=== PATIENT | male | born 1950 | race African-American/Black ===

== ENCOUNTER 2016-03-12 12:16 | Outpatient (CLI) | payer MEDICARE, MEDICAID ==
[2016-03-12 13:06] LABS: Hemoglobin A1c 7.7 % (4.0-6.0)
[2016-03-12 13:12] LABS: ALT (SGPT) 24 U/L (0-55); AST (SGOT) 23 U/L (5-34); Alkaline Phosphatase 98 U/L (40-150); Anion Gap 15 mmol/L (10-20); BUN (Urea Nitrogen) 16 mg/dL (8.4-25.7); Bilirubin, Total 0.6 mg/dL (0.2-1.2); Calc. Creatinine Clearance 0 mL/min (70-130); Calcium 9.5 mg/dL (7.8-10.44); Carbon Dioxide 22 mmol/L (23-31); Chloride 105 mmol/L (98-107); Estimated GFR-MDRD 51; Globulin 3.4 g/dL (2.4-3.5); Glucose 132 mg/dL (80-115); Potassium 3.3 mmol/L (3.5-5.1); Protein, Total 7.4 g/dL (5.8-8.1); Sodium 139 mmol/L (136-145)
== END 2016-03-12 12:17 | disposition home or self-care (01) ==
LOC: MADLABBHPM 12:16
PROVIDERS: ATTEND Family Medicine
DX: E11.22 Type 2 diabetes mellitus with diabetic chronic kidney disease (principal); I10 Essential (primary) hypertension
CPT/HCPCS: 36415; 80053; 83036

== ENCOUNTER 2016-04-07 17:03 | Emergency (ER) | payer MEDICARE, MEDICAID ==
[2016-04-07] MEDS ORDERED: Sodium Chloride 0.9% 100 ML BAG ONE (17:15)
[2016-04-07] MEDS ORDERED: cefTRIAXone\\ROCEPHIN 1 GM VIAL ONE (17:32)
[2016-04-07] MEDS ORDERED: Lidocaine 1% 20 ML MDV ONE (17:32)
--- NOTE | 2016-04-07 18:36 | PICIS ---
[facility] EMERGENCY RECORD TRIAGE (ThuApr 07, 2016 17:10 MDEB) TRIAGE NOTES: PAINFUL LEFT EYE AND PAIN TO LEFT UPPER JAW. (ThuApr 07, 2016 17:10 MDEB) PATIENT: NAME: Davy Chen, AGE: 65, GENDER: male, : Thu1950, TIME OF GREET: ThuApr 07, 2016 17:04, PREFERRED LANGUAGE: Amharic, ETHNICITY: Not or , FALL RISK: NO, ECODE BILLING MAP: [facility], SSN: [id number], Zip Code: [address], KG WEIGHT: 78.93, PHONE: , , , PERSON ID: [id number], PCP: MD NOBLES IMELDA. (ThuApr 07, 2016 17:10 MDEB) COMPLAINT: LT EYE-BUMP & REDNESS. (ThuApr 07, 2016 17:10 MDEB) ADMISSION: URGENCY: 4 Non Urgent, ADMISSION SOURCE: Home, TRANSPORT: Walk-in, BED: ED -03. (ThuApr 07, 2016 17:10 MDEB) ASSESSMENT: Symptoms began 04/05/2016. (17:12 MDEB) PAIN: Patient complains of pain described as, throbbing, on a scale 0-10 patient rates pain as 5, Location LEFT LOWER LID, Pain is constant, Aggravating factors:, Aggravating factors include BLINKING, Relieving factors present, Relieving factors include WARM COMPRESSES. (17:12 MDEB) SIRS SCORING: Heart Rate 55-109 (0), Temp range 96.8-101.1 (0), respiratory rate 12-24 (0), Mental Status altered: no (0). (17:12 MDEB) TRIAGE SCREENING: Patient denies suicidal ideation, Patient denies presence of domestic violence. (17:12 MDEB) PROVIDERS: TRIAGE NURSE: Zohreh Flaherty RN. (ThuApr 07, 2016 17:10 MDEB) VITAL SIGNS: BP 148/87, Pulse 73, Resp 18, Temp 98.8, (Tympanic), Pain 5, (not applicable), O2 Sat 97, on Room Air, Time 04/07/2016 17:08. (17:08 MDEB) PREVIOUS VISIT ALLERGIES: No Known Drug Allergies. (ThuApr 07, 2016 17:10 MDEB) No Known Drug Allergies. (17:12 MDEB) KNOWN ALLERGIES No Known Allergies (Unconfirmed) No Known Drug Allergies CURRENT MEDICATIONS (17:11 MDEB) enalapril maleate: TABLET : Strength - 10 mg : ORAL Patient Dose: 2 times a day. glyBURIDE: TABLET : Strength - 5 mg : ORAL Patient Dose: 2 times a day. Stribild: TABLET : Strength - 150 mg-150 mg-200 mg-300 mg : ORAL Patient Dose: 1 tab(s) Oral once a day (in the morning). Combivent: AEROSOL WITH ADAPTER (GRAM) : Strength - 18 mcg-103 mcg (90 &a-1R&a+25V*p+0X*v6438T*c202B*c15G*c2P*p-0X&a-25V&a+1R Name: Davy Chen : 1950 M65 MedRec: [id number] AcctNum: [id number] Prepared: ThuApr 08, 2016 01:14 by Interface Page 1 of 6 pMD [facility] EMERGENCY RECORD mcg)/actuation : INHALATION Patient Dose: 4 times a day. hydrochlorothiazide: CAPSULE : Strength - 12.5 mg : ORAL Patient Dose: once a day. VITAL SIGNS (17:08 MDEB) VITAL SIGNS: BP: 148/87, Pulse: 73, Resp: 18, Temp: 98.8 (Tympanic), Pain: 5 (not applicable), O2 sat: 97 on Room Air, Time: 04/07/2016 17:08. NURSING ASSESSMENT: EYE (17:37 SFRE) CONSTITUTIONAL: Patient arrives ambulatory, Gait steady, History obtained from patient, Patient appears comfortable, Patient cooperative, Patient alert, Oriented to person, place and time, Skin warm, Skin dry, Skin normal in color, Mucous membranes pink, Mucous membranes moist, Patient is well-groomed, Patient complains of PAIN TO LEFT EYE. PAIN: throbbing pain, Left eye, Onset of pain 04/05/2016, constant, TEMPORARY RELIEF WITH WARM COMPRESSES, Pain exacerbated by, BLINKING, Nothing has been tried to alleviate the pain. EYES: Eye lid, with edema on the left, Conjunctiva, injected on the left, Sclera, injected on the left, Iris normal, Pupils equally round and reactive to light, Associated with drainage, yellow in color, to the left eye, AND CLEAR DRAINAGE, Notes: SMALL BUMP ON LOWER LEFT LID. SAFETY: Side rails up, Cart/Stretcher in lowest position, Call light within reach, Hospital ID band on. NURSING PROCEDURE: DISCHARGE NOTE (18:09 SFRE) DISCHARGE: Patient discharged to home, ambulating without assistance, friend driving, accompanied by friend, Summary of Care printed/ provided, Patient requested and was provided an electronic copy of Discharge Instructions, Discharge instructions given to patient, Simple or moderate discharge teaching performed, by KALE ANAYA, F/U WITH PCP. RX DIRECTED. RETURN TO ED NEEDED FOR NEW/CONCERNING OR WORSENING SYMPTOMS., Prescriptions given and instructions on side effects given, Name of prescription(s) given: AUGMENTIN, GENT OINT, Above person(s) verbalized understanding of discharge instructions and follow-up care. MEDICATION ADMINISTRATION SUMMARY Drug Name: Rocephin injection, Dose Ordered: 1 g, Route: Intramuscular, Status: Given, Time: 17:31 04/07/2016, Detailed record available in Medication Service section. &a-1R&a+25V*p+0X*p1851B*c202B*c15G*c2P*p-0X&a-25V&a+1R Name: Davy Chen : 1950 M65 MedRec: [id number] AcctNum: [id number] Prepared: ThuApr 08, 2016 01:14 by Interface Page 2 of 6 pMD [facility] EMERGENCY RECORD MEDICATION SERVICE (17:31 [facility]) Rocephin injection: Order: Rocephin injection (ceftriaxone sodium) - Dose: 1 g : Intramuscular Schedule: Now Ordered by: Sudarshan Bahena MD Entered by: Sudarshan Bahena MD ThuApr 07, 2016 17:31 , Acknowledged by: Erica Chacon RN ThuApr 07, 2016 17:31 Documented as given by: Erica Chacon RN ThuApr 07, 2016 17:31 Patient, Medication, Dose, Route and Time verified prior to administration. IM antibiotic, Amount given: 1G, Medication administered to right hip, Patient appears Awake and alert- acceptable, Correct patient, time, route, dose and medication confirmed prior to administration, Patient advised of actions and side-effects prior to administration, Allergies confirmed and medications reviewed prior to administration, Patient in position of comfort, Side rails up, Cart in lowest position, Family at bedside. HPI EYE COMPLAINT (17:32 DHAM) CHIEF COMPLAINT: Patient presents for evaluation of pain, to the left eye, Patient presents for evaluation of swelling L lower eyelid. HISTORIAN: History provided by patient, Pt is an HIV pos and diabetic male with onset of a knot on his left lower eyelid 48 hours ago. He now has pain in front of his left ear. no fever. MECHANISM OF INJURY: no injury. LOCATION: Symptoms are localized, most severe in the left eye. QUALITY: Pain is dull in nature, described as aching. SEVERITY: Current severity of pain rated as 5/10. TIME COURSE: Gradual onset of symptoms, 45, hours prior to arrival, Symptoms are worsening, more swelling and pain. ASSOCIATED WITH: No associated contact use, Associated with crusting, Associated with discharge, No associated facial pain, No associated fever, No associated foreign body sensation, No associated glasses use, No associated headache, No associated nausea, No associated tearing, No associated upper respiratory infection, No associated vomiting, No associated weakness, No associated blurred vision, pain and a "bump in front of my left ear.". RELIEVED BY: Nothing tried for relief. ROS (17:37 DHAM) EYES: Historian reports eye pain, denies eye redness, reports eye discharge, denies itching, denies photophobia, denies tearing, denies vision changes. ENT: Historian denies otalgia, denies rhinorrhea, denies voice changes. &a-1R&a+25V*p+0X*o2449N*c202B*c15G*c2P*p-0X&a-25V&a+1R Name: Davy Chen : 1950 M65 MedRec: [id number] AcctNum: [id number] Prepared: ThuApr 08, 2016 01:14 by Interface Page 3 of 6 pMD [facility] EMERGENCY RECORD CARDIOVASCULAR: Historian denies chest pain. RESPIRATORY: Historian denies cough, denies shortness of breath, denies sputum. ENDOCRINE: blood sugars "always about 130". PAST MEDICAL HISTORY MEDICAL HISTORY: Notes: verified 11-12-15, Notes: HIV+ CURRENTLY UNDER TREATMENT, HTN, ischemic CVA X2, COPD, DM, 09-20-15. (17:12 MDEB) MALE SURGICAL HISTORY: verified 11-12-15, RIGHT ROTATOR CUFF REPAIR, UMBILICAL HERNIA REPAIR IN 2015, XIAO:09-20-15. (17:12 MDEB) SOCIAL HISTORY: Patient denies alcohol use, Patient denies drug use, Patient has no smoking history, Patient denies alcohol use, Patient denies drug use, Patient has no smoking history, Lives at home, with family, Patient denies alcohol use, Patient denies drug use, Patient has no smoking history. (17:12 MDEB) NOTES: HAVE EXAMINED AND AGREE WITH PMHX, SOCIAL HX AND PAST FAMILY HX as noted in nursing docuentation. (17:41 DHAM) PHYSICAL EXAM (17:38 DHAM) CONSTITUTIONAL: Vital Signs Reviewed, Patient afebrile, Pulse normal, Blood pressure normal, Respiratory rate normal, Patient appears non toxic, Patient appears pain free, Patient alert and oriented to person, place and time, Nursing notes reviewed. HEAD: Head exam included findings of head atraumatic, normocephalic, no raccoon eyes, Normal temporal artery exam. EYES: Pupils equally round and reactive to light, Extraocular muscles intact, Conjunctiva normal, Sclera normal, Atraumatic, Eye exam included findings of anterior chamber clear, left lower eyelid with 5mm x 5mm nodule at the lid margin with mild swelling of the left lower lid. 1.5 x 1.5 cm preauricular node on the left that is mobile, slightly tender, firm and not fluctuant. ENT: Ear exam normal, Nose exam normal, Pharynx exam normal, Uvula exam normal, Mouth exam normal. NECK: Neck exam included findings of normal range of motion, no meningeal signs, no cervical adenopathy. RESPIRATORY CHEST: Respiratory exam included findings of no respiratory distress, Breath sounds clear, No wheezing, No rales, No rhonchi. CARDIOVASCULAR: Cardiovascular assessment normal. NEURO: Charlene coma scale 15, Neuro exam findings include patient oriented to person, place and time, Speech normal, Gait normal, Memory normal. SKIN: Skin exam included findings of skin warm, dry, and normal in color, no rash. PSYCHIATRIC: Psychiatric exam included findings of patient oriented to person place and time, Normal affect, Judgment normal, Insight normal, Remote memory normal, Recent memory normal, Concentration normal. &a-1R&a+25V*p+0X*v0680A*c202B*c15G*c2P*p-0X&a-25V&a+1R Name: Davy Chen : 1950 M65 MedRec: [id number] AcctNum: [id number] Prepared: ThuApr 08, 2016 01:14 by Interface Page 4 of 6 pMD [facility] EMERGENCY RECORD EVENTS TRANSFER: Triage to Emergency Main ED -03. (ThuApr 07, 2016 17:10 MDESEQUIEL) Emergency Main ED -03 to Holding. (18:13 SFRE) Removed from Emergency Holding. (18:18 SFRE) O2SAT INTERPRETATION (17:41 DHAM) O2SAT: Single pulse oximetry, Oxygen saturation 97%, on room air, Oxygen saturation interpretation: Normal, No intervention required. PROBLEM LIST No recorded problems DIAGNOSIS (17:42 DHAM) FINAL: PRIMARY: stye left eye, ADDITIONAL: ACUTE LYMPHADENITIS UNSPECIFIED. DISPOSITION PATIENT: Disposition Type: Discharge, Disposition: *Discharge Home. (17:42 DHAM) Patient left the department. (18:18 SFRE) INSTRUCTION (17:43 DHAM) DISCHARGE: STY. FOLLOWUP: MD [place], [facility], [facility], [address] [place] [id number], [id number]. SPECIAL: Augmentin 875mg one twice a day for 10 days Gentamycin ophth oint 4 times a day to the left eye after a 10 minute warm soak 4 times a day. Return for increased swelling, pain, fevers. PRESCRIPTION Augmentin: TABLET : 875 mg-125 mg : ORAL : Quantity: 1 Unit: tab(s) Route: ORAL Schedule: 2 times a day (before meals) Dispense: 20 Unit: tab(s) May substitute. Refills: No Refills . (17:47 DHAM) NOTES: No Refills. (17:47 DHAM) Gentak: OINTMENT (GRAM) : 0.3 % : OPHTHALMIC : Quantity: 1 Unit: marco Route: OPHTHALMIC Schedule: 4 times a day Dispense: 1 Unit: ea May substitute. Refills: No Refills . (17:48 DHAM) NOTES: No Refills. (17:48 DHAM) IMAGING (18:18 SFRE) *DISCHARGE INSTRUCTIONS RECEIPT: Image captured from scanner. *SUPPLY CHARGE SHEET: Image captured from scanner. ADMIN (ThuApr 08, 2016 01:09 DHAM) DIGITAL SIGNATURE: MD Bahena Darren. &a-1R&a+25V*p+0X*b7221H*c202B*c15G*c2P*p-0X&a-25V&a+1R Name: Davy Chen : 1950 M65 MedRec: [id number] AcctNum: [id number] Prepared: ThuApr 08, 2016 01:14 by Interface Page 5 of 6 pMD [facility] EMERGENCY RECORD Ferguson: ALEXIS=MD Josef, Sudarshan MDEB=KALE Flaherty, Zohreh NGUYENE=KALE Chacon, Erica &a-1R&a+25V*p+0X*v6376B*c202B*c15G*c2P*p-0X&a-25V&a+1R Name: Davy Chen : 1950 M65 MedRec: [id number] AcctNum: [id number] Prepared: ThuApr 08, 2016 01:14 by Interface Page 6 of 6 pMD MTDD
== END 2016-04-07 18:09 | disposition home or self-care (01) ==
LOC: MADERS 17:03
DX: H00.015 Hordeolum externum left lower eyelid (principal); L04.9 Acute lymphadenitis, unspecified; I10 Essential (primary) hypertension; B20 Human immunodeficiency virus [HIV] disease; Z79.899 Other long term (current) drug therapy
CPT/HCPCS: 96372; J0696; J2001; J7050

== ENCOUNTER 2016-05-18 14:39 | Emergency (ER) | payer MEDICARE, MEDICAID ==
[2016-05-18] MEDS ORDERED: Acetaminophen/Codeine 30-300mg Tablet ONE (15:41)
[2016-05-18] MEDS ORDERED: AMOXicillin 250 MG CAP ONE (15:41)
[2016-05-18] MEDS ORDERED: Sulfameth/Trimethoprim DS 800-160mg TAB ONE (15:41)
== END 2016-05-18 15:45 | disposition home or self-care (01) ==
LOC: MADERS 14:39
DX: N48.21 Abscess of corpus cavernosum and penis (principal); I10 Essential (primary) hypertension; J44.9 Chronic obstructive pulmonary disease, unspecified; E11.9 Type 2 diabetes mellitus without complications; Z21 Asymptomatic human immunodeficiency virus [HIV] infection status; Z86.73 Personal history of transient ischemic attack (TIA), and cerebral infarction without residual deficits; Z79.84 Long term (current) use of oral hypoglycemic drugs; Z79.899 Other long term (current) drug therapy
CPT/HCPCS: 99282

== ENCOUNTER 2016-06-02 12:29 | Outpatient (CLI) | payer MEDICARE, MEDICAID ==
[2016-06-02 13:14] LABS: Hemoglobin A1c 7.9 % (4.0-6.0)
[2016-06-02 13:16] LABS: ALT (SGPT) 27 U/L (0-55); AST (SGOT) 24 U/L (5-34); Albumin 3.7 g/dL (3.4-4.8); Alkaline Phosphatase 79 U/L (40-150); Anion Gap 12 mmol/L (10-20); BUN (Urea Nitrogen) 14 mg/dL (8.4-25.7); Bilirubin, Total 0.5 mg/dL (0.2-1.2); Calc. Creatinine Clearance 0 mL/min (70-130); Calcium 9.1 mg/dL (7.8-10.44); Carbon Dioxide 24 mmol/L (23-31); Cardiac Risk 5.5 (Less than 4.5); Chloride 105 mmol/L (98-107); Cholesterol 176 mg/dL (< 200 Desired); Estimated GFR-MDRD 60; Globulin 3.3 g/dL (2.4-3.5); Glucose 187 mg/dL (80-115); HDL Cholesterol 32 mg/dL (>60 Neg Risk); LDL Cholesterol, Calculated 106 mg/dL; Potassium 3.2 mmol/L (3.5-5.1); Sodium 138 mmol/L (136-145); Triglycerides 192 mg/dL (Less than 150)
[2016-06-02 13:49] LABS: PSA-Asymptomatic (SCREENING) 1.17 ng/mL (0-4.0); Thyroid Stimulating Hormone 2.897 uIU/mL (0.35-4.94)
[2016-06-02 14:56] LABS: Bilirubin Negative (Negative); Blood, Urine Moderate (Negative); Clarity Clear (Clear); Glucose, Urine (Dipstick) 250 mg/dL (Negative); Leukocyte Negative (Negative); Nitrite Negative (Negative); Protein, Urine (Dipstick) > or equal to 300 mg/dL (Neg-Trace); Specific Gravity, Urine 1.025 (1.005-1.030); Urobilinogen 0.2 mg/dL (0.2-1.0); pH, Urine 5.5 (5.0-9.0)
[2016-06-02 15:13] LABS: Bacteria/HPF Rare-Few HPF (None Seen); Squamous Epithelial 0-3 HPF (0-3); WBC/HPF 0-3 HPF (0-3)
[2016-06-03 17:28] LABS: Creatinine, Urine 166.59 mg/dL (63-166)
== END 2016-06-02 12:30 | disposition home or self-care (01) ==
LOC: MADLABBHPM 12:29
PROVIDERS: ATTEND Urology
DX: E78.5 Hyperlipidemia, unspecified (principal); E11.22 Type 2 diabetes mellitus with diabetic chronic kidney disease
CPT/HCPCS: 36415; 80053; 80061; 81001; 82570; 83036; 84156; 84443; 87086; G0103

== ENCOUNTER 2016-06-10 11:17 | Outpatient (CLI) | payer MEDICARE, MEDICAID ==
[2016-06-10 11:52] LABS: #Basophils 0.1 thou/uL (0.0-0.2); #Eosinphils 0.4 thou/uL (0.0-0.7); #Lymphocytes 1.8 thou/uL (1.20-3.40); #Monocytes 0.4 thou/uL (0.11-0.59); #Neutrophils 2.5 thou/uL (1.40-6.50); %Basophils 1.7 % (0.0-1.0); %Eosinophils 7.3 % (0.0-10.0); %Lymphocytes 34.2 % (21.0-51.0); %Monocytes 7.1 % (0.0-10.0); %Neutrophils 49.8 % (42.0-75.0); Hemoglobin 12.9 g/dL (14.0-18.0); Mean Corpuscular HGB CONC 32.8 g/dL (32.0-36.0); Mean Corpuscular Hemoglobin 26.4 pg (27.0-31.0); Mean Corpuscular Volume 80.7 fl (80.0-94.0); Mean Platelet Volume 9.6 fL (7.4-10.4); Platelet Count 161 thou/uL (130-400); RBC Distribution Width 14.6 % (11.5-14.5); Red Blood Cell (RBC) Count 4.89 mill/uL (4.70-6.10); White Blood Cell (WBC) Count 5.1 thou/uL (4.8-10.8)
[2016-06-10 12:24] LABS: ALT (SGPT) 30 U/L (0-55); AST (SGOT) 27 U/L (5-34); Albumin 3.7 g/dL (3.4-4.8); Alkaline Phosphatase 88 U/L (40-150); Anion Gap 14 mmol/L (10-20); BUN (Urea Nitrogen) 13 mg/dL (8.4-25.7); Bilirubin, Total 0.6 mg/dL (0.2-1.2); Calc. Creatinine Clearance 0 mL/min (70-130); Calcium 8.9 mg/dL (7.8-10.44); Carbon Dioxide 23 mmol/L (23-31); Chloride 108 mmol/L (98-107); Estimated GFR-MDRD 63; Globulin 3.4 g/dL (2.4-3.5); Glucose 160 mg/dL (80-115); Potassium 3.7 mmol/L (3.5-5.1); Protein, Total 7.1 g/dL (5.8-8.1); Sodium 141 mmol/L (136-145)
[2016-06-10 17:48] LABS: HBSAB Concentration 3.15 mIU/mL; HBSAg Index 0.25 S/CO (0-0.99); Hep B Surf AB Non-Reactive (NonReactive); Hep B Surf Ag Non-Reactive S/CO (NonReactive)
[2016-06-12 08:30] LABS: Hepatitis A Total ABS Positive (Negative)
[2016-06-12 12:16] LABS: Absolute CD4 252 /uL (359-1519); Lymphocytes/Gated Cell Count 1.8 x10E3/uL (0.7-3.1); Total Lymphocyte 35 % (.); WBC Total Count 5.1 x10E3/uL (3.4-10.8)
== END 2016-06-10 11:18 | disposition home or self-care (01) ==
LOC: MADLAB 11:17
PROVIDERS: ATTEND Internal Medicine Infectious Disease
DX: Z21 Asymptomatic human immunodeficiency virus [HIV] infection status (principal)
CPT/HCPCS: 36415; 80053; 85025; 85048; 86361; 86480; 86592; 86706; 86708; 87340; 87536

== ENCOUNTER 2016-06-12 07:34 | Outpatient (CLI) | payer MEDICARE, MEDICAID ==
--- NOTE | 2016-06-12 09:52 | ULT ---
BILATERAL RENAL ULTRASOUND: HISTORY: Chronic renal disease. FINDINGS: The right kidney measures 11.4 cm in length and the left kidney measures 11 cm in length. No hydron ephrosis is seen on either side. There is an 12 cyst in the left mid kidney. The urinary bladder i s unremarkable. IMPRESSION: Left renal cyst. POS: [facility]
== END 2016-06-12 07:35 | disposition home or self-care (01) ==
LOC: MADULT 07:34
PROVIDERS: ATTEND Internal Medicine Nephrology
DX: N18.3 Chronic kidney disease, stage 3 (moderate) (principal); N28.1 Cyst of kidney, acquired
CPT/HCPCS: 76770

== ENCOUNTER 2016-07-26 13:05 | Emergency (ER) | payer MEDICARE, MEDICAID ==
[2016-07-26] MEDS ORDERED: Benzonatate 100 MG CAP ONE (14:53)
[2016-07-26] MEDS ORDERED: AMOXicillin 250 MG CAP ONE (14:53)
[2016-07-26] MEDS ORDERED: Naproxen 500 MG TAB ONE (14:53)
== END 2016-07-26 15:00 | disposition home or self-care (01) ==
LOC: MADERS 13:05
DX: J20.9 Acute bronchitis, unspecified (principal); I10 Essential (primary) hypertension; B20 Human immunodeficiency virus [HIV] disease; J44.9 Chronic obstructive pulmonary disease, unspecified; E11.9 Type 2 diabetes mellitus without complications; Z79.899 Other long term (current) drug therapy; Z86.73 Personal history of transient ischemic attack (TIA), and cerebral infarction without residual deficits; Z79.84 Long term (current) use of oral hypoglycemic drugs
CPT/HCPCS: 99283

== ENCOUNTER 2016-07-31 08:02 | Outpatient (CLI) | payer MEDICARE, MEDICAID ==
[2016-07-31 08:34] LABS: Hemoglobin A1c 6.8 % (4.0-6.0)
[2016-07-31 09:05] LABS: ALT (SGPT) 39 U/L (8-55); AST (SGOT) 23 U/L (5-34); Albumin 3.6 g/dL (3.4-4.8); Alkaline Phosphatase 88 U/L (40-150); Anion Gap 12 mmol/L (10-20); BUN (Urea Nitrogen) 11 mg/dL (8.4-25.7); Bilirubin, Total 0.4 mg/dL (0.2-1.2); Calc. Creatinine Clearance 0 mL/min (70-130); Calcium 8.8 mg/dL (7.8-10.44); Carbon Dioxide 23 mmol/L (23-31); Chloride 108 mmol/L (98-107); Estimated GFR-MDRD 86; Globulin 3.9 g/dL (2.4-3.5); Glucose 174 mg/dL (80-115); Potassium 3.8 mmol/L (3.5-5.1); Protein, Total 7.5 g/dL (5.8-8.1); Sodium 139 mmol/L (136-145)
== END 2016-07-31 08:03 ==
LOC: MADLABBHPM 08:02
PROVIDERS: ATTEND Family Medicine
DX: E78.5 Hyperlipidemia, unspecified (principal)
CPT/HCPCS: 36415; 80053; 83036

== ENCOUNTER 2016-10-22 07:35 | Outpatient (CLI) | payer MEDICARE, MEDICAID ==
[2016-10-22 08:54] LABS: ALT (SGPT) 40 U/L (8-55); AST (SGOT) 24 U/L (5-34); Albumin 3.6 g/dL (3.4-4.8); Alkaline Phosphatase 102 U/L (40-150); Anion Gap 15 mmol/L (10-20); BUN (Urea Nitrogen) 13 mg/dL (8.4-25.7); Bilirubin, Total 0.4 mg/dL (0.2-1.2); Calc. Creatinine Clearance 0 mL/min (70-130); Calcium 8.8 mg/dL (7.8-10.44); Carbon Dioxide 22 mmol/L (23-31); Chloride 104 mmol/L (98-107); Cholesterol 206 mg/dl (< 200 Desired); Estimated GFR-MDRD 62; Globulin 3.6 g/dL (2.4-3.5); Glucose 304 mg/dL (80-115); HDL Cholesterol 41 mg/dL (>60 Neg Risk); LDL Cholesterol, Calculated 135 mg/dL; Potassium 3.7 mmol/L (3.5-5.1); Protein, Total 7.2 g/dL (5.8-8.1); Sodium 137 mmol/L (136-145); Triglycerides 151 mg/dL (Less than 150)
[2016-10-22 09:12] LABS: Free T4 (Free Thyroxine) 0.9 ng/dL (0.70-1.48); Thyroid Stimulating Hormone 2.5992 uIU/mL (0.35-4.94)
[2016-10-22 09:51] LABS: Hemoglobin A1c 8.2 % (4.0-6.0)
== END 2016-10-22 07:36 | disposition home or self-care (01) ==
LOC: MADLABBHPM 07:35
PROVIDERS: ATTEND Internal Medicine Nephrology
DX: E11.22 Type 2 diabetes mellitus with diabetic chronic kidney disease (principal); E78.5 Hyperlipidemia, unspecified; N18.2 Chronic kidney disease, stage 2 (mild)
CPT/HCPCS: 36415; 80053; 80061; 83036; 84439; 84443

== ENCOUNTER 2017-02-17 10:10 | Emergency (ER) | payer MEDICARE, MEDICAID | END 2017-02-17 10:35 | disposition home or self-care (01) | LOC: MADERS 10:10 | DX: J01.90 Acute sinusitis, unspecified (principal); E11.9 Type 2 diabetes mellitus without complications; B20 Human immunodeficiency virus [HIV] disease; I10 Essential (primary) hypertension; Z86.73 Personal history of transient ischemic attack (TIA), and cerebral infarction without residual deficits; Z79.4 Long term (current) use of insulin | CPT/HCPCS: 99283 ==

== ENCOUNTER 2017-03-03 08:58 | Emergency (ER) | payer MEDICARE, MEDICAID ==
[2017-03-03] MEDS ORDERED: cefTRIAXone\\ROCEPHIN 1 GM VIAL ONE (09:56)
[2017-03-03] MEDS ORDERED: Lidocaine 1% 20 ML MDV ONE (09:56)
== END 2017-03-03 10:10 | disposition home or self-care (01) ==
LOC: MADERS 08:58
DX: J20.9 Acute bronchitis, unspecified (principal); E11.9 Type 2 diabetes mellitus without complications; I10 Essential (primary) hypertension; Z79.4 Long term (current) use of insulin; Z79.899 Other long term (current) drug therapy
CPT/HCPCS: 96372; J0696; J1040; J2001

== ENCOUNTER 2017-03-12 14:36 | Emergency (ER) | payer MEDICARE, MEDICAID | END 2017-03-12 15:07 | disposition home or self-care (01) | LOC: MADERS 14:36 | DX: J20.9 Acute bronchitis, unspecified (principal); E11.9 Type 2 diabetes mellitus without complications; Z79.4 Long term (current) use of insulin; B20 Human immunodeficiency virus [HIV] disease; I10 Essential (primary) hypertension; Z86.73 Personal history of transient ischemic attack (TIA), and cerebral infarction without residual deficits; Z79.899 Other long term (current) drug therapy | CPT/HCPCS: 99283 ==

== ENCOUNTER 2017-04-15 11:03 | Outpatient (CLI) | payer MEDICARE, MEDICAID ==
--- NOTE | 2017-04-15 13:12 | RAD ---
CHEST TWO VIEWS: HISTORY: Cough. COMPARISON: 12/19/2015 FINDINGS: The cardiac silhouette and pulmonary vasculature are unremarkable. The mediastinum is midline. Ther e is no confluent air space consolidation, pneumothorax, or pleural fluid evident. IMPRESSION: No active cardiopulmonary abnormalities are demonstrated. POS: [facility]
== END 2017-04-15 11:04 | disposition home or self-care (01) ==
LOC: MADRAD 11:03
PROVIDERS: ATTEND Family Medicine
DX: R05 Cough (principal)
CPT/HCPCS: 71046

== ENCOUNTER 2017-05-06 09:50 | Outpatient (CLI) | payer MEDICARE, MEDICAID ==
--- NOTE | 2017-05-06 11:53 | RAD ---
PA AND LATERAL VIEWS CHEST: HISTORY: COPD. Persistent cough. COMPARISON: 04/15/2017 FINDINGS: The heart size is normal. The aorta is tortuous. The lungs are well expanded without lobar consolid ation, pneumothorax, or pleural effusions. No acute osseous abnormalities are seen. IMPRESSION: No acute process. POS: [facility]
== END 2017-05-06 09:51 | disposition home or self-care (01) ==
LOC: MADRAD 09:50
PROVIDERS: ATTEND Family Medicine
DX: J44.9 Chronic obstructive pulmonary disease, unspecified (principal); R05 Cough; B20 Human immunodeficiency virus [HIV] disease
CPT/HCPCS: 71046

== ENCOUNTER 2017-07-23 08:55 | Outpatient (CLI) | payer MEDICARE, MEDICAID ==
--- NOTE | 2017-07-23 10:18 | RAD ---
LEFT ANKLE THREE VIEWS: History: Trauma. Pain. Comparison: None. FINDINGS: Lateral soft tissue swelling. Joint spaces are preserved. No evidence of fracture. Vascular calcifica tions are identified. IMPRESSION: Vascular calcifications. No fracture. There is soft tissue swelling. POS: [facility]
--- NOTE | 2017-07-23 10:57 | RAD ---
THREE VIEWS LEFT FOOT: Date: 07-23-17 Comparison: None. History: Pain for one week, no history of trauma. FINDINGS: There is degenerative change involving the first metatarsal phalangeal joint with joint space narrowi ng, subchondral sclerosis, and osteophyte formation. There is atherosclerotic calcification posterior and anterior to the distal left tibia. There is enthesophyte formation at the origin of the plantar aponeurosis. No acute osseous abnormalit y seen. IMPRESSION: Chronic findings as described above. No acute fracture or dislocation is seen. POS: [facility]
== END 2017-07-23 08:56 | disposition home or self-care (01) ==
LOC: MADRAD 08:55
PROVIDERS: ATTEND Family Medicine
DX: M25.472 Effusion, left ankle (principal); I70.90 Unspecified atherosclerosis

== ENCOUNTER 2017-08-12 08:10 | Outpatient (CLI) | payer MEDICARE, MEDICAID ==
[2017-08-12 09:35] LABS: Anion Gap 13 mmol/L (10-20); BUN (Urea Nitrogen) 8 mg/dL (8.4-25.7); Calc. Creatinine Clearance 0 mL/min (70-130); Calcium 8.9 mg/dL (7.8-10.44); Carbon Dioxide 25 mmol/L (23-31); Chloride 106 mmol/L (98-107); Estimated GFR-MDRD Greater than 90; Glucose 212 mg/dL (80-115); Potassium 3.8 mmol/L (3.5-5.1); Sodium 140 mmol/L (136-145)
== END 2017-08-12 08:11 ==
LOC: MADLABBHPM 08:10
PROVIDERS: ATTEND Family Medicine
DX: M79.89 Other specified soft tissue disorders (principal)
CPT/HCPCS: 36415; 80048

== ENCOUNTER 2017-08-17 08:39 | Outpatient (CLI) | payer MEDICARE, MEDICAID ==
[2017-08-17 09:59] LABS: Calcium 8.5 mg/dL (7.8-10.44); Chloride 107 mmol/L (98-107); Potassium 3.5 mmol/L (3.5-5.1); Sodium 140 mmol/L (136-145)
[2017-08-17 11:04] LABS: BUN (Urea Nitrogen) 8 mg/dL (8.4-25.7); Calc. Creatinine Clearance 0 mL/min (70-130); Carbon Dioxide 22 mmol/L (23-31); Estimated GFR-MDRD Greater than 90; Glucose 162 mg/dL (80-115)
[2017-08-17 11:42] LABS: Anion Gap 15 mmol/L (10-20)
== END 2017-08-17 08:40 ==
LOC: MADLABBHPM 08:39
PROVIDERS: ATTEND Family Medicine
DX: I10 Essential (primary) hypertension (principal)
CPT/HCPCS: 36415; 80048

== ENCOUNTER 2017-12-07 20:46 | Emergency (ER) | payer MEDICARE, MEDICAID ==
[2017-12-07] MEDS ORDERED: Ibuprofen 800 MG TAB ONE (22:15)
== END 2017-12-07 22:38 | disposition home or self-care (01) ==
LOC: MADERS 20:46
DX: L02.414 Cutaneous abscess of left upper limb (principal); E11.9 Type 2 diabetes mellitus without complications; I10 Essential (primary) hypertension; J44.9 Chronic obstructive pulmonary disease, unspecified; Z79.4 Long term (current) use of insulin; Z79.899 Other long term (current) drug therapy; Z86.73 Personal history of transient ischemic attack (TIA), and cerebral infarction without residual deficits
CPT/HCPCS: 10060

== ENCOUNTER 2017-12-24 09:56 | Outpatient (CLI) | payer MEDICARE, MEDICAID ==
[2017-12-25 12:15] LABS: Absolute CD4 270 /uL (359-1519); Lymphocytes/Gated Cell Count 1.8 x10E3/uL (0.7-3.1); Total Lymphocyte 44 % (Not Estab.); WBC Total Count 4.2 x10E3/uL (3.4-10.8)
[2017-12-27 17:07] LABS: HIV-1 Quantitative, RNA PCR <20 copies/mL (.)
== END 2017-12-24 09:57 | disposition home or self-care (01) ==
LOC: MADLABBHPM 09:56
PROVIDERS: ATTEND Family Medicine
DX: B20 Human immunodeficiency virus [HIV] disease (principal)
CPT/HCPCS: 36415; 85048; 86361; 87536

== ENCOUNTER 2018-06-26 03:33 | Emergency (ER) | payer MEDICARE, MEDICAID | END 2018-06-26 04:05 | disposition home or self-care (01) | LOC: MADERS 03:33 | DX: J20.9 Acute bronchitis, unspecified (principal); E11.9 Type 2 diabetes mellitus without complications; Z79.4 Long term (current) use of insulin; B20 Human immunodeficiency virus [HIV] disease; Z86.73 Personal history of transient ischemic attack (TIA), and cerebral infarction without residual deficits; J44.9 Chronic obstructive pulmonary disease, unspecified; Z79.899 Other long term (current) drug therapy; Z79.84 Long term (current) use of oral hypoglycemic drugs | CPT/HCPCS: 99283 ==

== ENCOUNTER 2018-11-06 23:45 | Emergency (ER) | payer MEDICARE, MEDICAID ==
[2018-11-07] MEDS ORDERED: Amoxicillin/Potassium Clav 875 MG TAB ONE
[2018-11-07] MEDS ORDERED: Dexamethasone 4 MG TAB ONE
[2018-11-07] MEDS ORDERED: HYDROcodone/Acetaminophen 5/325 mg Tablet ONE (00:16)
[2018-11-07] MEDS ORDERED: Benzonatate 100 MG CAP ONE (00:16)
== END 2018-11-07 00:21 | disposition home or self-care (01) ==
LOC: MADERS 23:45
DX: J44.1 Chronic obstructive pulmonary disease with (acute) exacerbation (principal); J18.9 Pneumonia, unspecified organism; I10 Essential (primary) hypertension; E11.9 Type 2 diabetes mellitus without complications; B20 Human immunodeficiency virus [HIV] disease; Z79.4 Long term (current) use of insulin; Z86.73 Personal history of transient ischemic attack (TIA), and cerebral infarction without residual deficits; Z79.899 Other long term (current) drug therapy; Z79.84 Long term (current) use of oral hypoglycemic drugs
CPT/HCPCS: 94640; J7620; J8540

== ENCOUNTER 2019-02-09 11:08 | Outpatient (CLI) | payer MEDICARE, MEDICAID ==
--- NOTE | 2019-02-09 11:23 | RAD ---
EXAM: Chest PA and lateral: HISTORY: COPD. Persistent cough. COMPARISON: 05/07/2019 FINDINGS: Dorsal column stimulator is incompletely evaluated and terminates in the midthoracic level Heart: Normal cardiac silhouette Aorta: Unremarkable Pulmonary vessels: Normal Costophrenic angles: Costophrenic angles are clear. Lungs: No consolidation or masses. Pneumothorax: No pneumothorax Osseous structures: No osseous abnormalities IMPRESSION: No acute cardiopulmonary process.
== END 2019-02-09 11:09 | disposition home or self-care (01) ==
LOC: MADLABBHPM 11:08
PROVIDERS: ATTEND Family Medicine
DX: R06.02 Shortness of breath (principal)
CPT/HCPCS: 71046

== ENCOUNTER 2019-05-10 20:01 | Emergency (ER) | payer MEDICARE, MEDICAID ==
[2019-05-10 20:57] LABS: #Basophils 0.1 thou/uL (0.0-0.2); #Eosinphils 0.1 thou/uL (0.0-0.7); #Lymphocytes 0.9 thou/uL (1.20-3.40); #Monocytes 0.4 thou/uL (0.11-0.59); #Neutrophils 4.4 thou/uL (1.40-6.50); %Basophils 1.1 % (0.0-1.0); %Lymphocytes 15.3 % (21.0-51.0); %Monocytes 6.7 % (0.0-10.0); Hemoglobin 11.4 g/dL (14.0-18.0); Mean Corpuscular HGB CONC 32.2 g/dL (32.0-36.0); Mean Corpuscular Hemoglobin 26.9 pg (27.0-31.0); Mean Corpuscular Volume 83.6 fL (78.0-98.0); Mean Platelet Volume 8.6 fL (7.4-10.4); Platelet Count 187 thou/uL (130-400); RBC Distribution Width 12.7 % (11.5-14.5); Red Blood Cell (RBC) Count 4.24 mill/uL (4.70-6.10); White Blood Cell (WBC) Count 5.8 thou/uL (4.8-10.8)
--- NOTE | 2019-05-10 21:07 | RAD ---
XR Chest 1 View Portable HISTORY: Cough and shortness of breath COMPARISON: None. FINDINGS: Heart size is enlarged. Pulmonary vessels appear engorged. Lungs are clear of any infiltrat rik process. Dorsal column stimulators present. IMPRESSION: Cardiomegaly with pulmonary vascular engorgement.
[2019-05-10 21:17] LABS: ALT (SGPT) 17 U/L (8-55); AST (SGOT) 16 U/L (5-34); Albumin 3.9 g/dL (3.4-4.8); Alkaline Phosphatase 51 U/L (40-110); Anion Gap 13 mmol/L (10-20); BUN (Urea Nitrogen) 21 mg/dL (8.4-25.7); Bilirubin, Total 0.2 mg/dL (0.2-1.2); Calc. Creatinine Clearance 0 mL/min (70-130); Calcium 9.2 mg/dL (7.8-10.44); Carbon Dioxide 22 mmol/L (23-31); Chloride 110 mmol/L (98-107); Estimated GFR-MDRD 31; Globulin 3.1 g/dL (2.4-3.5); Glucose 176 mg/dL (80-115); Potassium 4.7 mmol/L (3.5-5.1); Sodium 140 mmol/L (136-145)
[2019-05-10 21:36] LABS: CKMB 3.2 ng/mL (0-6.6)
== END 2019-05-10 21:35 | disposition home or self-care (01) ==
LOC: MADERS 20:01
DX: J06.9 Acute upper respiratory infection, unspecified (principal); R06.2 Wheezing; E11.9 Type 2 diabetes mellitus without complications; B20 Human immunodeficiency virus [HIV] disease; I10 Essential (primary) hypertension; J44.9 Chronic obstructive pulmonary disease, unspecified; Z86.73 Personal history of transient ischemic attack (TIA), and cerebral infarction without residual deficits; Z79.899 Other long term (current) drug therapy
CPT/HCPCS: 71045; 80053; 82553; 83880; 84484; 85025; 93005; J7620

== ENCOUNTER 2019-11-17 08:10 | Outpatient (CLI) | payer MEDICARE, MEDICAID ==
--- NOTE | 2019-11-17 09:03 | RAD ---
EXAM: Chest 2 views: HISTORY: Shortness of breath and atrial fibrillation COMPARISON: 02/09/2019 FINDINGS: There is a normal-sized cardiomediastinal silhouette. There is no evidence of consolidation, mass, or pleural effusion. Degenerative changes are seen in the spine. A spinal stimulation device is seen. IMPRESSION: No evidence of acute cardiopulmonary disease
--- NOTE | 2019-11-17 09:10 | ULT ---
US Renal Bilateral STANDARD: 11/17/2019 9:03 AM CLINICAL HISTORY: Renal insufficiency. STUDY: Renal ultrasound COMPARISON: 06/12/2016 FINDINGS: Right kidney: Echogenicity: Normal. Masses/cysts: None. Hydronephrosis: None. Calcifications: None. Length: 9.0 cm Left kidney: Echogenicity: Normal. Masses/cysts: 2.1 cm left renal cyst Hydronephrosis: None. Calcifications: None. Length: 11.0 cm Limited visualization of the urinary bladder is unremarkable. IMPRESSION: Left renal cyst
[2019-11-17 13:12] LABS: Bilirubin Negative (Negative); Blood, Urine Trace (Negative); Clarity Clear (Clear); Glucose, Urine (Dipstick) Negative (Negative); Ketone, Urine Negative (Negative); Leukocyte Trace (Negative); Nitrite Negative (Negative); Protein, Urine (Dipstick) > or equal to 300 mg/dL (Neg-Trace); Specific Gravity, Urine 1.025 (1.005-1.030); Urobilinogen 0.2 mg/dL (Less than 2)
[2019-11-17 13:19] LABS: RBC/HPF 0-3 HPF (0-3)
[2019-11-17 13:20] LABS: Bacteria/HPF Rare-Few HPF (None Seen)
[2019-11-17 17:42] LABS: Hemoglobin A1c 7.4 % (4.0-6.0)
== END 2019-11-17 08:11 | disposition home or self-care (01) ==
LOC: MADEKG 08:10
PROVIDERS: ATTEND Family Medicine
DX: I11.0 Hypertensive heart disease with heart failure (principal); I50.20 Unspecified systolic (congestive) heart failure; N40.0 Benign prostatic hyperplasia without lower urinary tract symptoms; M54.5 Low back pain; R06.02 Shortness of breath; G81.91 Hemiplegia, unspecified affecting right dominant side; R25.2 Cramp and spasm; F41.1 Generalized anxiety disorder; M79.662 Pain in left lower leg; G90.09 Other idiopathic peripheral autonomic neuropathy; I48.91 Unspecified atrial fibrillation; R53.1 Weakness; J30.2 Other seasonal allergic rhinitis; R79.89 Other specified abnormal findings of blood chemistry; I46.2 Cardiac arrest due to underlying cardiac condition; E11.42 Type 2 diabetes mellitus with diabetic polyneuropathy; B20 Human immunodeficiency virus [HIV] disease; E78.49 Other hyperlipidemia; J44.9 Chronic obstructive pulmonary disease, unspecified; E87.6 Hypokalemia; N28.1 Cyst of kidney, acquired; Z68.27 Body mass index [BMI] 27.0-27.9, adult
CPT/HCPCS: 36415; 71046; 76770; 81001; 83036; 87086; 93005; 93010

== ENCOUNTER 2019-12-04 18:11 | Emergency (ER) | payer MEDICARE, MEDICAID | END 2019-12-04 18:30 | disposition home or self-care (01) | LOC: MADERS 18:11 | DX: T63.301A Toxic effect of unspecified spider venom, accidental (unintentional), initial encounter (principal); E11.9 Type 2 diabetes mellitus without complications; I10 Essential (primary) hypertension; B20 Human immunodeficiency virus [HIV] disease; J44.9 Chronic obstructive pulmonary disease, unspecified; Z86.73 Personal history of transient ischemic attack (TIA), and cerebral infarction without residual deficits; Z79.4 Long term (current) use of insulin | CPT/HCPCS: 99282 ==

== ENCOUNTER 2021-02-25 17:22 | Emergency (ER) | payer MEDICARE, MEDICAID ==
[2021-02-25 18:13] LABS: #Basophils 0.1 thou/uL (0.0-0.2); #Eosinphils 0.1 thou/uL (0.0-0.7); #Lymphocytes 0.9 thou/uL (1.20-3.40); #Monocytes 0.5 thou/uL (0.11-0.59); #Neutrophils 6.5 thou/uL (1.40-6.50); %Basophils 1.1 % (0.0-1.0); %Eosinophils 0.7 % (0.0-10.0); %Lymphocytes 11.4 % (21.0-51.0); %Monocytes 5.6 % (0.0-10.0); %Neutrophils 81.2 % (42.0-75.0); Hemoglobin 11.4 g/dL (14.0-18.0); Mean Corpuscular HGB CONC 32.6 g/dL (32.0-36.0); Mean Corpuscular Hemoglobin 26.4 pg (27.0-31.0); Mean Corpuscular Volume 81.1 fL (78.0-98.0); Mean Platelet Volume 7.4 fL (7.4-10.4); Platelet Count 184 thou/uL (130-400); RBC Distribution Width 11.9 % (11.5-14.5); Red Blood Cell (RBC) Count 4.32 mill/uL (4.70-6.10); White Blood Cell (WBC) Count 7.9 thou/uL (4.8-10.8)
[2021-02-25 18:32] LABS: ALT (SGPT) 22 U/L (8-55); AST (SGOT) 22 U/L (5-34); Albumin 3.7 g/dL (3.4-4.8); Alkaline Phosphatase 77 U/L (40-110); Anion Gap 11 mmol/L (10-20); BUN (Urea Nitrogen) 29 mg/dL (8.4-25.7); Bilirubin, Total 0.7 mg/dL (0.2-1.2); Calc. Creatinine Clearance 0 mL/min (70-130); Calcium 9.1 mg/dL (7.8-10.44); Carbon Dioxide 24 mmol/L (23-31); Chloride 108 mmol/L (98-107); Globulin 3.5 g/dL (2.4-3.5); Glucose 80 mg/dL (80-115); Potassium 3.6 mmol/L (3.5-5.1); Protein, Total 7.2 g/dL (5.8-8.1); Sodium 139 mmol/L (136-145)
[2021-02-25 19:14] LABS: Bilirubin Negative (Negative); Blood, Urine Moderate (Negative); Clarity Hazy (Clear); Glucose, Urine (Dipstick) Negative (Negative); Ketone, Urine Negative (Negative); Leukocyte Negative (Negative); Nitrite Negative (Negative); Protein, Urine (Dipstick) > or equal to 300 mg/dL (Neg-Trace); Specific Gravity, Urine 1.025 (1.005-1.030); Urobilinogen 0.2 mg/dL (Less than 2)
[2021-02-25 19:20] LABS: Bacteria/HPF 2+ HPF (None Seen)
[2021-02-25] MEDS ORDERED: Aspirin Chewable 81 MG TAB ONE (20:27)
[2021-02-25 21:29] LABS: SARS-CoV-2 NAA Rapid Test Not Detected (NotDetected)
== END 2021-02-26 00:30 | disposition left against medical advice (07) ==
LOC: MADERS 17:22
DX: R41.82 Altered mental status, unspecified (principal); R53.1 Weakness; Z20.822 Contact with and (suspected) exposure to COVID-19; I10 Essential (primary) hypertension; E11.9 Type 2 diabetes mellitus without complications; J44.9 Chronic obstructive pulmonary disease, unspecified; Z86.73 Personal history of transient ischemic attack (TIA), and cerebral infarction without residual deficits; Z21 Asymptomatic human immunodeficiency virus [HIV] infection status
CPT/HCPCS: 70450; 71045; 80053; 81003; 81015; 83605; 83880; 85025; 93005; U0002

== ENCOUNTER 2021-04-21 12:43 | Emergency (ER) | payer MEDICARE, MEDICAID ==
[2021-04-21] MEDS ORDERED: Ibuprofen 600 MG TAB ONE (13:19)
== END 2021-04-21 14:07 | disposition home or self-care (01) ==
LOC: MADERS 12:43
DX: S16.1XXA Strain of muscle, fascia and tendon at neck level, initial encounter (principal); S46.912A Strain of unspecified muscle, fascia and tendon at shoulder and upper arm level, left arm, initial encounter; E11.9 Type 2 diabetes mellitus without complications; I10 Essential (primary) hypertension; Z86.73 Personal history of transient ischemic attack (TIA), and cerebral infarction without residual deficits; J44.9 Chronic obstructive pulmonary disease, unspecified; Z79.4 Long term (current) use of insulin; B20 Human immunodeficiency virus [HIV] disease; Z87.891 Personal history of nicotine dependence; Z79.899 Other long term (current) drug therapy; Z79.84 Long term (current) use of oral hypoglycemic drugs; V43.52XA Car driver injured in collision with other type car in traffic accident, initial encounter

== ENCOUNTER 2021-07-19 17:07 | Emergency (ER) | payer MEDICARE, MEDICAID ==
[~2021-07-19 17:07] MED LIST: Sodium Chloride 0.9% 1,000 ML BAG ONE
[2021-07-19] MEDS ORDERED: Acetaminophen 500 MG TAB ONE (17:21)
[2021-07-19] MEDS ORDERED: Ibuprofen 800 MG TAB ONE (17:29)
[2021-07-19 18:20] LABS: #Basophils 0.1 thou/uL (0.0-0.2); #Eosinphils 0.1 thou/uL (0.0-0.7); #Lymphocytes 0.5 thou/uL (1.20-3.40); #Monocytes 0.5 thou/uL (0.11-0.59); #Neutrophils 4.2 thou/uL (1.40-6.50); %Eosinophils 1.6 % (0.0-10.0); %Lymphocytes 8.9 % (21.0-51.0); %Neutrophils 79.6 % (42.0-75.0); ALT (SGPT) 24 U/L (8-55); AST (SGOT) 24 U/L (5-34); Albumin 3.6 g/dL (3.4-4.8); Alkaline Phosphatase 67 U/L (40-110); Anion Gap 15 mmol/L (10-20); BUN (Urea Nitrogen) 26 mg/dL (8.4-25.7); Bilirubin, Total 0.8 mg/dL (0.2-1.2); Calc. Creatinine Clearance 0 mL/min (70-130); Calcium 8.5 mg/dL (7.8-10.44); Carbon Dioxide 21 mmol/L (23-31); Chloride 108 mmol/L (98-107); Globulin 3.1 g/dL (2.4-3.5); Glucose 86 mg/dL (80-115); Hemoglobin 10.4 g/dL (14.0-18.0); Mean Corpuscular HGB CONC 31.9 g/dL (32.0-36.0); Mean Corpuscular Hemoglobin 25.1 pg (27.0-31.0); Mean Corpuscular Volume 78.5 fL (78.0-98.0); Platelet Count 140 thou/uL (130-400); Potassium 3.8 mmol/L (3.5-5.1); Protein, Total 6.7 g/dL (5.8-8.1); RBC Distribution Width 13.7 % (11.5-14.5); Red Blood Cell (RBC) Count 4.14 mill/uL (4.70-6.10); Sodium 140 mmol/L (136-145); White Blood Cell (WBC) Count 5.3 thou/uL (4.8-10.8)
[2021-07-19 18:26] LABS: SARS-CoV-2 NAA Rapid Test Not Detected (NotDetected)
[2021-07-19 18:32] LABS: Bilirubin Negative (Negative); Blood, Urine Moderate (Negative); Glucose, Urine (Dipstick) Negative (Negative); Ketone, Urine Negative (Negative); Leukocyte Negative (Negative); Nitrite Negative (Negative); Protein, Urine (Dipstick) > or equal to 300 mg/dL (Neg-Trace); Urobilinogen 0.2 mg/dL (Less than 2)
[2021-07-19 18:33] LABS: Clarity Hazy (Clear)
[2021-07-19 18:40] LABS: Bacteria/HPF Rare-Few HPF (None Seen); Squamous Epithelial 0-3 HPF (0-3)
[2021-07-19] MEDS ORDERED: Sodium Chloride 0.9% 100 ML ONE (18:43)
[2021-07-19] MEDS ORDERED: Cefepime 2 GM VIAL ONE (18:43)
== END 2021-07-19 19:53 | disposition left against medical advice (07) ==
LOC: MADERS 17:07
DX: A41.9 Sepsis, unspecified organism (principal); J06.9 Acute upper respiratory infection, unspecified; Z20.822 Contact with and (suspected) exposure to COVID-19; E11.9 Type 2 diabetes mellitus without complications; I10 Essential (primary) hypertension; J44.9 Chronic obstructive pulmonary disease, unspecified; Z21 Asymptomatic human immunodeficiency virus [HIV] infection status; Z86.73 Personal history of transient ischemic attack (TIA), and cerebral infarction without residual deficits; Z87.891 Personal history of nicotine dependence; Z79.899 Other long term (current) drug therapy; Z79.4 Long term (current) use of insulin; Z79.84 Long term (current) use of oral hypoglycemic drugs
CPT/HCPCS: 71045; 81003; 81015; 83605; 85025; 87040; 87804; 94760; 96365; J0692; J3490; J7050; U0002

== ENCOUNTER 2021-10-30 10:51 | Outpatient (CLI) | payer MEDICARE, MEDICAID ==
[2021-10-30 11:13] LABS: #Basophils 0.1 thou/uL (0.0-0.2); #Eosinphils 0.3 thou/uL (0.0-0.7); #Lymphocytes 1.3 thou/uL (1.20-3.40); #Monocytes 0.3 thou/uL (0.11-0.59); #Neutrophils 3.1 thou/uL (1.40-6.50); %Basophils 1.1 % (0.0-1.0); %Eosinophils 6.3 % (0.0-10.0); %Lymphocytes 25.1 % (21.0-51.0); %Monocytes 5.9 % (0.0-10.0); %Neutrophils 61.6 % (42.0-75.0); Hemoglobin 9.9 g/dL (14.0-18.0); Mean Corpuscular HGB CONC 31.8 g/dL (32.0-36.0); Mean Corpuscular Hemoglobin 25.9 pg (27.0-31.0); Mean Corpuscular Volume 81.5 fL (78.0-98.0); Platelet Count 164 thou/uL (130-400); Red Blood Cell (RBC) Count 3.83 mill/uL (4.70-6.10)
[2021-10-30 11:24] LABS: Anion Gap 14 mmol/L (10-20); BUN (Urea Nitrogen) 32 mg/dL (8.4-25.7); Calc. Creatinine Clearance 0 mL/min (70-130); Calcium 8.2 mg/dL (7.8-10.44); Carbon Dioxide 20 mmol/L (23-31); Chloride 110 mmol/L (98-107); Estimated GFR 11; Glucose 304 mg/dL (80-115); Potassium 3.6 mmol/L (3.5-5.1); Sodium 140 mmol/L (136-145)
[2021-10-30 16:52] LABS: HBSAB Concentration Less than 8.00 mIU/mL; HBSAg Index 0.24 S/CO (0-0.99); Hep B Surf AB Non-Reactive (NonReactive); Hep B Surf Ag Non-Reactive S/CO (NonReactive)
[2021-10-30 17:26] LABS: Hep C IgG Ab Reflex HepC Qnt (NonReactive); Hep C Index 2.41 S/CO (0-0.79)
[2021-10-30 18:31] LABS: Hep B Core Total Ab Reactive (NonReactive)
[2021-10-30 18:32] LABS: Hep B Core Total Index 1.56 S/CO (0-0.79)
== END 2021-10-30 10:52 | disposition home or self-care (01) ==
LOC: MADLAB 10:51
PROVIDERS: ATTEND Internal Medicine Nephrology
DX: N18.5 Chronic kidney disease, stage 5 (principal)
CPT/HCPCS: 36415; 71046; 80048; 85025; 86704; 86706; 86803; 87340

== ENCOUNTER 2022-02-04 13:40 | Outpatient (CLI) | payer MEDICARE, OTHER | END 2022-02-04 13:41 | disposition home or self-care (01) | LOC: MADRAD 13:40 | PROVIDERS: ATTEND Family Medicine | DX: M25.512 Pain in left shoulder (principal); M19.012 Primary osteoarthritis, left shoulder ==